=== PATIENT | female | born 1985 | race Caucasian/White ===

== ENCOUNTER 2020-03-21 04:55 | Observation (INO) ==
[2020-03-21] MEDS ORDERED: PROMETHAZINE 25 MG/51 ML BAG IV STA (05:42)
[2020-03-21] MEDS ORDERED: SODIUM CHLORIDE 0.9% 1000ML 1,000 ML IV ONE (05:42)
[2020-03-21] MEDS ORDERED: KETOROLAC 30 MG/ML VIAL IV ONE (05:42)
[2020-03-21] MEDS ORDERED: FAMOTIDINE 20MG IV PUSH 20 MG/5 ML SYR IV STA (05:43)
--- NOTE | 2020-03-21 05:46 | Emergency Department Note ---
Impression & Plan Intractable vomiting, Marijuana use ED Provider Note NAME: NIYA SEAY AGE: 34 SEX: F ARRIVES VIA: Ambulance INFORMANT: Patient ED PROVIDER(S): Carla Malik DO CHIEF COMPLAINT: Vomiting PLAN: Disposition: [facility]mitted by [facility] Condition: Fair MEDICAL DECISION MAKING: This is a 34-year-old female patient with a history of cyclic vomiting who presents to the department with vomiting. The patient was seen here yesterday with the same complaint and treated with a cocktail of IV medications and felt better upon discharge. Last evening, the patient was able to drink clear liq uids and eat some crackers and toast. Prior to going to bed, she took her dose of oral Phenergan. She woke up around 3:30 AM and felt extremely nauseated. She tried taking a sublingual Zofran for the nausea but it continued to worsen. She felt very weak and developed some increasing left upper quadrant abdominal pain. She called EMS. The patient was evaluated here in the emergency department and received IV fluids and IV antiemetics. This is the patient's third visit to the emergency department in the past 3 days. She has been unable to keep any solid foods down. The patient states that she is not been abusing marijuana for the past 4-5 days. She is concerned that she has not been able to get the GI work-up that she needs because of the coronavirus pandemic. The case was discussed with the [facility] and they will evaluate for further management. Triage Nursing notes reviewed and agree them. Prior medical records reviewed Vital Signs: reviewed and remarkable for slight hypertension Differential diagnosis: Dehydration, hypokalemia, cyclic vomiting syndrome, electrolyte abnormality, [facility] abuse, ER treatment provided: IV normal saline solution, IV Phenergan, IV Pepcid, IV Benadryl, IV Zofran Laboratory studies: See below HPI: 34/F arrives for evaluation of. This is a 34-year-old female patient with a history of cyclic vomiting who presents to the department with vomiting. The patient was seen here yesterday with the same complaint and treated with a cocktail of IV medications and felt better upon discharge. Last evening the patient was able to drink clear liquids and eat some crackers and toast. Prior to going to bed she took her dose of oral Phenergan. She woke up around 3:30 AM and felt extremely nauseated. She tried taking a sublingual Zofran for the n ausea but it continued to worsen. She felt very weak and developed some increasing left upper quadrant abdominal pain. She called EMS and they transported her here. The patient states that she last used marijuana approximately 5 days ago. She has been suffering from cyclic vomiting for the past 1 year. She was supposed to have GI evaluation and upper GI scope performed but it was canceled secondary to the onset of the coronavirus pandemic. ROS: See above HPI for pertinent positives & negatives. A total of 10 systems reviewed and were otherwise negative. PAST MEDICAL HISTORY:See Below PAST SURGICAL HISTORY:See Below FAMILY HISTORY:See Below SOCIAL HISTORY:See Below HOME MEDICATIONS:See list ALLERGIES:See list VITALS:See Below PHYSICAL EXAMINATION: HEENT: Head - normocephalic and atraumatic Pupils are equal, round, and reactive to light. Extraocular eye muscles are intact, and sclera are anicteric. Nose - moist nasal mucosa without discharge. Mouth - moist buccal mucosa. Oropharynx is nonerythematous and there is no tonsillar exudate or edema noted. Neck: Supple; no cervical lymphadenopathy or thyromegaly Heart: Regular rate and rhythm. There is a normal S1 and S2 with no murmurs, clicks, or gallops appreciated. Lungs: Clear to auscultation bilaterally with no wheezes, rales, or rhonchi. Abdomen: Soft, diffusely tender with even light palpation but most pacifically in the left upper quadrant of the abdomen. There are normal bowel sounds. There are no palpable pulsatile masses or hepatosplenomegaly. There is no guarding, rigidity, or rebound noted. Extremities: Contusion on the left proximal lower leg Skin: Pale, warm and dry with good turgor and no rashes. ED COURSE: Times/Reassessments: 0525: The patient was evaluated in room C6. A complete history and physical was performed. Previous electronic medical records were reviewed. An order was placed for continuous cardiac monitoring. The patient was in a normal sinus rhythm at a rate of 61. The patient was given a liter of normal saline solution. She was given IV Phenergan, IV Pepcid, and IV Toradol. This gave her no relief of her nausea and she continued to dry heave. Another order was placed for IV Benadryl and IV Zofran. I discussed the case with Dr. Gillespie who has agreed to evaluate the patient for further management. Carla Malik DO Past Med/Surg History Medical History Bipolar 1 disorder Chronic pain Cyclic vomiting syndrome (Acute) GERD (gastroesophageal reflux disease) Herniated intervertebral disc Marijuana use (Acute) Surgical History No pertinent past surgical history No significant past surgical history Social History Preferred Language: Dutch Communication Ability: Effective Visual Impairment: No Limitations Hearing Ability: Normal Beliefs That Will Affect Care: None marital status: Single Current Living Situation: Family Current Living Situation Comment: lives with her sons current occupational status: employed current occupation: [employer] Other Information That Helps Us Care for You: No Feels Safe at Home: Yes Safety Concerns: Feels Safe At This Time Smoking Status: Current every day smoker Tobacco Type: cigarettes ; Cigarettes Per Day: 10 ; Second Hand Exposure: Yes ; Tobacco Cessation Education Requested by Patient: No Hx Alcohol Use: No Hx Substance Use: Yes substance use type: marijuana Substance Use Type Other:: Suboxin Last Used Substance Other:: suboxin taken yesterday afternoon Allergies Allergies Allergy/AdvReac Type Severity Reaction Status Date / Time bee venom protein (honey bee) Allergy Mild Swelling Verified 03/21/20 05:39 shellfish derived Allergy Mild Unknown Verified 03/21/20 05:39 Sulfa (Sulfonamide Allergy Mild Unknown Verified 03/21/20 05:39 Antibiotics) Home Meds Home Medications Medication Instructions Recorded Confirmed buprenorphine-naloxone 2.5 tab SUBLINGUAL DAILY 01/19/19 03/21/20 medroxyprogesterone 150 mg IM UD 01/19/19 03/21/20 omeprazole 40 mg PO QAM 01/19/19 03/21/20 phentermine 18.75 mg PO Q OTHER DAY 01/19/19 03/21/20 trazodone 300 mg PO HS 01/19/19 03/21/20 valacyclovir 500 mg PO TID PRN 04/25/19 03/21/20 Previous Rx's Medication Instructions Recorded promethazine 25 mg PO TID PRN #10 tab 11/25/19 famotidine [Pepcid] 20 mg PO BID 56 Days #112 tab 03/20/20 ondansetron 4 mg PO Q6H PRN #20 tab 03/20/20 Results & Data (ED) Vital Signs Vital Signs - 24 hr 03/21/20 05:07 03/21/20 06:29 Pulse Rate 71 Pulse Rate [Right Finger] 87 Pulse Rhythm [Right Finger] Regular Pulse Strength [Right Finger] Normal Respiratory Rate 16 16 Respiratory Depth Normal Normal Blood Pressure 152/71 H Blood Pressure [Right Arm] 158/85 H Blood Pressure Mean 98 Blood Pressure Mean [Right Arm] 109 Blood Pressure Position Lying Blood Pressure Position [Right Arm] Lying Pulse Oximetry 97 97 Oxygen Delivery Method Room Air Room Air Sepsis Recent Fever Within 48 Hours No Sepsis New/Unexplained Change in Mental Status No Sepsis Action Taken by Nursing No Action Required Laboratory Data Result diagrams: 03/21/20 05:00 Lab Results 03/21/20 Range/Units 05:00 Sodium 143 (136-145) mmol/L Potassium 3.2 L (3.5-5.1) mmol/L Chloride 112 H (98-107) mmol/L Carbon Dioxide 25 (21-32) mmol/L Anion Gap 6.0 (3-11) BUN 11 (7-18) mg/dl Creatinine 0.81 (0.6-1.2) mg/dl Est Cr Clr Drug Dosing 116.5 ml/min Est GFR ( Amer) 109.1 Est GFR (Non-Af Amer) 94.1 BUN/Creatinine Ratio 13.7 (10-20) Glucose 109 H (70-99) mg/dl Calcium 9.0 (8.5-10.1) mg/dl Total Bilirubin 1.0 (0.2-1) mg/dl AST 9 L (15-37) U/L ALT 23 (12-78) U/L Alkaline Phosphatase 45 (45-117) U/L Total Protein 7.0 (6.4-8.2) gm/dl Albumin 4.2 (3.4-5.0) gm/dl Globulin 2.8 (2.5-4.0) gm/dl Albumin/Globulin Ratio 1.5 (0.9-2) Administered Medications Buprenorphine/Naloxone (Suboxone 8 Mg/2 Mg) 2.5 tab SL DAILY RANDALL; Protocol Stop: 04/20/20 08:59 Last Admin: 03/21/20 08:31 Dose: 1.5 tab Documented by: [id number] Dextrose/Sodium Chloride (D5w And Nss) 1,000 mls @ 125 mls/hr IV .Q8H RANDALL Stop: 04/20/20 07:28 Last Admin: 03/21/20 08:09 Dose: 125 mls/hr Documented by: [id number] Pantoprazole Sodium 40 mg/ (Syringe) 10 mls @ 5 mls/min IV BID RANDALL Stop: 04/20/20 08:59 Last Admin: 03/21/20 08:13 Dose: 5 mls/min Documented by: [id number] Potassium Chloride (K [place] / Wtr) 10 meq in 100 mls @ 100 mls/hr IV Q1H RANDALL Stop: 03/21/20 09:59 Last Admin: 03/21/20 08:11 Dose: 100 mls/hr Documented by: [id number] Discontinued Medications Diphenhydramine HCl (Benadryl) 25 mg IV NOW STA Stop: 03/21/20 06:36 Last Admin: 03/21/20 06:45 Dose: 25 mg Documented by: [id number] Sodium Chloride (Nss 1000ml) 1,000 mls @ 999 mls/hr IV .Q1H1M ONE Stop: 03/21/20 06:42 Last Infusion: 03/21/20 06:58 Dose: 0 mls/hr Documented by: [id number] Admin: 03/21/20 05:47 Dose: 999 mls/hr Documented by: [id number] Promethazine HCl (Phenergan) 25 mg in 51 mls @ 204 mls/hr IV NOW STA Stop: 03/21/20 05:56 Last Infusion: 03/21/20 06:15 Dose: 0 mls/hr Documented by: [id number] Admin: 03/21/20 05:47 Dose: 204 mls/hr Documented by: [id number] Famotidine (Pepcid 20mg Iv Push) 20 mg in 5 mls @ 2.5 mls/min IV NOW STA Stop: 03/21/20 05:44 Last Admin: 03/21/20 05:49 Dose: 2.5 mls/min Documented by: [id number] Ketorolac Tromethamine (Toradol) 30 mg IV NOW ONE Stop: 03/21/20 05:43 Last Admin: 03/21/20 05:47 Dose: 30 mg Documented by: [id number] Ondansetron HCl (Zofran) 4 mg IV NOW STA Stop: 03/21/20 06:36 Last Admin: 03/21/20 06:45 Dose: 4 mg Documented by: [id number] Discharge Plan Visit Data *Final* Discharge Date/Time: 03/21/20 07:15 Chief Complaint: Vomiting Stated Complaint: VOMITING ED Provider: Carla Malik Discharge Problem: Intractable vomiting, Marijuana use Patient Disposition: Admitted As Inpatient Discharge Instructions Interventions: ED Discharge Assessment Last Done: 03/21/20 07:15 Discharge Problem: Intractable vomiting Qualifiers: Vomiting type: unspecified Nausea presence: with nausea Qualified Code(s): R11.2 - Nausea with vomiting, unspecified
[2020-03-21 06:31] LABS: Albumin Level 4.2 gm/dl (3.4-5.0); BUN Creatinine Ratio 13.7 (10-20); Creatinine Clr Calc Pharmacy 116.5 ml/min; Est GFR (African American) 109.1; Est GFR (Non-African American) 94.1; Potassium 3.2 mmol/L (3.5-5.1)
[2020-03-21 06:34] LABS: Albumin Globulin Ratio 1.5 (0.9-2); Globulin 2.8 gm/dl (2.5-4.0)
[2020-03-21] MEDS ORDERED: ONDANSETRON INJ 2 MG/ML 2 ML VIAL IV STA (06:35)
[2020-03-21] MEDS ORDERED: DiphenhydrAMINE HCL 50 MG/ML VIAL IV STA (06:35)
[2020-03-21] MEDS ORDERED: MoRPHine SULFATE 2 MG/ML CARP IV PRN (07:07)
[2020-03-21] MEDS ORDERED: ONDANSETRON INJ 2 MG/ML 2 ML VIAL IV PRN (07:29)
[2020-03-21] MEDS ORDERED: ACETAMINOPHEN 325 MG TAB PO PRN (07:29)
[2020-03-21] MEDS: D5W AND NSS 1,000 ML IV SCH ×2 (08:09→18:35)
[2020-03-21] MEDS: POTASSIUM CHLORIDE / WTR 10 MEQ/100 ML PLCT IV SCH ×2 (08:11→09:13)
[2020-03-21] MEDS ORDERED: PANTOprazole 40 MG in SYRINGE 0 ML IV SCH (09:00)
[2020-03-21] MEDS ORDERED: BUPRENORPHINE/NALOXONE 8/2 MG TAB SL SCH ×2 (09:00→18:00)
--- NOTE | 2020-03-21 09:19 | History and Physical Report ---
DATE OF ADMISSION: 03/21/2020 CHIEF COMPLAINT: Nausea, vomiting and abdominal pain. HISTORY OF PRESENT ILLNESS: This is a 34-year-old female with past medical history significant for GERD, morbid obesity, history of herpes simplex vulvovaginitis, history of narcotic addiction, tobacco disorder, bipolar affective disorder, who lives with her son, presents with persistent nausea and vomiting. This is her third visit in the last 3 days to the ER. The patient was in the ER yesterday; chest and abdominal x-ray was okay; labs were unremarkable. She improved with nausea medication and discharged home Again in the morning, she woke up at around 3:30 a.m. with persistent nausea and vomiting, she vomited several episodes of just liquid stuff, no blood in the vomitus and also abdominal pain mostly in the epigastric region. No diarrhea or constipation, no blood in the stools or black stools. Normal bladder movements. Currently, requesting for nausea medications .Hemodynamically stable. Denies any fever or chills. No chest pain, no shortness of breath, no cough, no sick contacts, no headache, no blurred vision, no earache, no runny nose, no sore throat. Appetite is not great because of her symptoms. She also smokes marijuana. She says the last time she smoked marijuana was 2 days ago. Supposed to visit GI, but because of the ongoing COVID pandemic, she was not able to see them. ALLERGIES: BEE VENOM, SHELLFISH, SULFA ANTIBIOTICS. PAST MEDICAL HISTORY: As mentioned above. PAST SURGICAL HISTORY: Dental surgery, tonsillectomy. MEDICATIONS: The patient is on trazodone 300 mg p.o. at bedtime, omeprazole 40 mg p.o. daily, Zofran 4 mg p.o. t.i.d. p.r.n., valacyclovir 500 mg t.i.d. p.r.n. for recurrent episode, Depo-Provera injection every 3 months, Suboxone 8/2 mg 2 tablets daily, phentermine 37.5 mg p.o. every other day, Tylenol 1000 mg p.o. t.i.d. p.r.n. FAMILY HISTORY: Significant for mother has history of alcoholism, arthritis, depression, anxiety, thyroid disorder. SOCIAL HISTORY: Lives with her son. Smokes 1 pack a day for the last 40 years. No alcohol use. Smokes marijuana. REVIEW OF SYMPTOMS: As per HPI. Rest of review of symptoms negative. PHYSICAL EXAMINATION: GENERAL: The patient is obese, not in acute distress. VITAL SIGNS: She is afebrile, pulse 87, respiratory rate 16, blood pressure 158/85, oxygen 97% on room air. HEENT: Pupils equal, round, and reactive to light. NECK: No neck masses. Supple. CARDIOVASCULAR: S1, S2 heard, regular rate and rhythm, no murmur, no gallop. RESPIRATORY SYSTEM: Normal AP diameter. No accessory muscle use. No wheezing, no crackles. ABDOMEN: Soft, bowel sounds somewhat sluggish, tenderness on palpation mostly in the epigastric region. No guarding, no rigidity. No distention. CENTRAL NERVOUS SYSTEM: Cranial nerves II-XII grossly intact, nonfocal. EXTREMITIES: No edema, no erythema. LABORATORY DATA: Sodium 143, potassium 3.2, chloride 112, bicarbonate 25, BUN 11, creatinine 0.8, serum glucose 109, calcium 9, total bilirubin 1, AST 9, ALT 23, alkaline phosphatase 45. ASSESSMENT AND PLAN: This is a 34-year-old female who presents with persistent nausea, vomiting, abdominal pain. 1. Persistent nausea, vomiting, abdominal pain .Cyclic vomiting. The patient was seen in the Emergency Room 3 times in last 3 days. In the ER, imaging studies done with chest x-ray and abdomen x-ray, which were unremarkable yesterday. Laboratories are unremarkable except for hypokalemia. The patient smokes marijuana, possibly marijuana induced. The patient is supposed to visit Gastrointestinal, but not able to because of the coronavirus pandemic. We will keep her n.p.o., IV fluids, IV antiemetics, IV pain medications p.r.n. and consult Gastrointestinal for further recommendations. Observe in the medical floor. 2. Gastroesophageal reflux disease. We will continue famotidine, place her on IV Protonix. 3. Obesity. We will hold phentermine for now. 4. Tobacco disorder, needs counseling. 5. History of narcotic addiction, on Suboxone. 6. Deep venous thrombosis prophylaxis, sequential compression devices. DISPOSITION: Close monitor and observe in the medical floor. Level 1 full code. MTDD
--- NOTE | 2020-03-21 09:42 | Gastrointestinal Consultation ---
Date of Consultation March 21, 2020 Assessment & Plan (1) Nausea & vomiting: Pt is a 34 y/o female w chronic n/v, epigastric pain symptoms. Previous imaging studies were unremarkable for acute gallbladder, liver, pancreas dz or bowel obstruction. She reports hx of heroin use, sober x 6 yrs, + marijuana and tobacco uses till 1 week ago, on Suboxone. DDx: gastritis, cannabis hyperemesis syndrome, gastroparesis (med related). - CL diet, advance as tolerated - PPI PO daily - Symptomatic management w antiemetics. 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 Requesting Physician: Dr. Nabil Thompson Attending Physician: Dr. Vernon Strauss History of Present Illness Pt is a 34 y/o female who presented w n/v symptoms x 1 month but worse in last week. Denies any coffee ground emesis or hematemesis. She reports associated epigastric pain as well. Denies fever, chills, CP, SOB, changes in bowel habits though no BM for several days as she's unable to tolerate solid foods. Able to tolerate norah bernie, other thin liquids. She had prior abd imaging studies including gallbladder u/s, CT and at this admission KUB - all w/o signs of significant gallbladder, liver pancreas dz, or signs of bowel obstruction. She does have moderate stool in colon seen on KUB yesterday. She has hx of heroin use up till 6 yrs ago, tobacco & marijuana uses up till 1 week ago. She is currently on Suboxone. Denies NSAIDs. She reports only thing that helped w n/v symptoms are being in hot shower. Denies any hx of endoscopic evals. Allergies Allergy/AdvReac Type Severity Reaction Status Date / Time bee venom protein (honey bee) Allergy Mild Swelling Verified 03/21/20 05:39 shellfish derived Allergy Mild Unknown Verified 03/21/20 05:39 Sulfa (Sulfonamide Allergy Mild Unknown Verified 03/21/20 05:39 Antibiotics) Home Medications Home Medications Medication Instructions Recorded Confirmed Type buprenorphine-naloxone 2.5 tab SUBLINGUAL DAILY 01/19/19 03/21/20 History medroxyprogesterone 150 mg IM UD 01/19/19 03/21/20 History omeprazole 40 mg PO QAM 01/19/19 03/21/20 History phentermine 18.75 mg PO Q OTHER DAY 01/19/19 03/21/20 History trazodone 300 mg PO HS 01/19/19 03/21/20 History valacyclovir 500 mg PO TID PRN 04/25/19 03/21/20 History promethazine 25 mg PO TID PRN #10 tab 11/25/19 03/21/20 Rx famotidine [Pepcid] 20 mg PO BID 56 Days #112 tab 03/20/20 03/21/20 Rx ondansetron 4 mg PO Q6H PRN #20 tab 03/20/20 03/21/20 Rx Patient History Medical History Bipolar 1 disorder Chronic pain Cyclic vomiting syndrome (Acute) GERD (gastroesophageal reflux disease) Herniated intervertebral disc Marijuana use (Acute) Surgical History No pertinent past surgical history No significant past surgical history Family History Mother Liver failure Father Alcoholic Other Diabetes Hypertension Lung disease Social History Preferred Language: Slovak Communication Ability: Effective Visual Impairment: No Limitations Hearing Ability: Normal Beliefs That Will Affect Care: None marital status: Single Current Living Situation: Family Current Living Situation Comment: lives with her sons current occupational status: employed current occupation: [employer] Other Information That Helps Us Care for You: No Feels Safe at Home: Yes Safety Concerns: Feels Safe At This Time Smoking Status: Current every day smoker Tobacco Type: cigarettes ; Cigarettes Per Day: 10 ; Second Hand Exposure: Yes ; Tobacco Cessation Education Requested by Patient: No Hx Alcohol Use: No Hx Substance Use: Yes substance use type: marijuana Substance Use Type Other:: Suboxin Last Used Substance Other:: suboxin taken yesterday afternoon Review of Systems Review of Systems: All systems reviewed & are unremarkable except as noted in HPI & below Constitutional: as per Subjective / HPI Respiratory: no cough and no dyspnea Cardiovascular: no chest pain, no lightheadedness and no edema Gastrointestinal: as per Subjective / HPI Physical Exam Constitutional: WD/WN, vitals as above well groomed, cooperative and comfortable Eyes: PERRL, conjunctivae normal, anicteric sclerae ENMT: external ear and nose normal, oropharynx normal Respiratory: normal respiratory effort, lungs clear to auscultation Cardiovascular: RRR, no murmur, no edema Gastrointestinal (Abdomen): Inspection/Auscultation: + hypoactive bowel sounds Percussion/Palpation: + abdomen tender (epigastric ) and abdomen soft Skin: rash on upper chest which she reports was from being in hot shower Neurologic: Motor/Sensory: no asterixis Psychiatric: A+Ox3, euthymic affect Lymphatic: no lymphedema Results & Data ([facility]) Vital Signs (Past 12 Hours) Vital Signs Temp Pulse Pulse Resp BP BP Pulse Ox 03/21/20 08:03 142/77 H 03/21/20 07:30 36.7 C 61 18 173/111 H 99 03/21/20 06:29 87 16 158/85 H 97 03/21/20 05:07 71 16 152/71 H 97
[2020-03-21] MEDS: POTASSIUM CHLORIDE 20 MEQ TABCR PO STA ×2 (09:55→10:34)
--- NOTE | 2020-03-21 14:43 | Communication Note ---
Date of Service: March 21, 2020 She is 34-year-old obese female with significant past medical history of narcotic addiction on Suboxone, tobacco use disorder, bipolar disorder with ongoing marijuana use was admitted early this morning with nausea and vomiting for the last 3 days. Nobody else in the family has been affected and she denies any fever and/or chills with it. She remains hemodynamically stable with some electrolyte disturbance. She has been feeling a lot better since admission and has been tolerating clears as ordered by GI service. She got supplemental electrolyte in replacement and will check her PRP before sending her home this evening. The diet was advanced as per her request and if she feels better she is to go home this evening. Dr Alexander Thompson
[2020-03-21 15:30] VITALS: BP 126/67; PULSE 68; TEMP 98.8; O2SAT 100
[2020-03-21 16:25] LABS: BUN Creatinine Ratio 16.6 (10-20); Creatinine Clr Calc Pharmacy 129.2 ml/min; Est GFR (African American) 123.7; Est GFR (Non-African American) 106.7; Potassium 3.9 mmol/L (3.5-5.1)
--- NOTE | 2020-03-21 17:17 | Discharge Summary ---
Date of Service March 21, 2020 Admission HPI Per Admitting Provider DICTATED BY: Hawk Gillespie MD DATE OF ADMISSION: 03/21/2020 CHIEF COMPLAINT: Nausea, vomiting and abdominal pain. HISTORY OF PRESENT ILLNESS: This is a 34-year-old female with past medical history significant for GERD, morbid obesity, history of herpes simplex vulvovaginitis, history of narcotic addiction, tobacco disorder, bipolar affective disorder, who lives with her son, presents with persistent nausea and vomiting. This is her third visit in the last 3 days to the ER. The patient was in the ER yesterday; chest and abdominal x-ray was okay; labs were unremarkable. She improved with nausea medication and discharged home checked went home. In the morning, she woke up at around 3:30 a.m. with persistent nausea and vomiting, she vomited several episodes of just liquid stuff, no blood in the vomitus and also abdominal pain mostly in the epigastric region. No diarrhea or constipation, no blood in the stools or black stools. Normal bladder movements. Currently, requesting for nausea medications and hemodynamically stable. Denies any fever or chills. No chest pain, no shortness of breath, no cough, no sick contacts, no headache, no blurred vision, no earache, no runny nose, no sore throat. Appetite is not great because of her symptoms. She also smokes marijuana. She says the last time she smoked marijuana was 2 days ago. Supposed to visit GI, but because of the ongoing COVID pandemic, she was not able to see them. Admission Exam Per Admitting Provider GENERAL: The patient is obese, not in acute distress. VITAL SIGNS: She is afebrile, pulse 87, respiratory rate 16, blood pressure 158/85, oxygen 97% on room air. HEENT: Pupils equal, round, and reactive to light. NECK: No neck masses. Supple. CARDIOVASCULAR: S1, S2 heard, regular rate and rhythm, no murmur, no gallop. RESPIRATORY SYSTEM: Normal AP diameter. No accessory muscle use. No wheezing, no crackles. ABDOMEN: Soft, bowel sounds somewhat sluggish, tenderness on palpation mostly in the epigastric region. No guarding, no rigidity. No distention. CENTRAL NERVOUS SYSTEM: Cranial nerves II-XII grossly intact, nonfocal. EXTREMITIES: No edema, no erythema Principal Diagnosis Intractable nausea and vomiting likely secondary to use of marijuana-resolved, GERD Discharge Exam Ambulating in the hallway without any symptoms Constitutional well developed and well nourished; no acute distress Eyes PERRL, conjunctivae normal, anicteric sclerae ENMT external ear and nose normal, oropharynx normal Respiratory no respiratory distress Auscultation: lungs clear to auscultation bilaterally Cardiovascular RRR, no murmur, no edema Gastrointestinal (Abdomen) Inspection/Auscultation: normal bowel sounds; abdomen not distended Percussion/Palpation: abdomen soft; abdomen nontender (epigastric ) Neurologic Motor/Sensory: no asterixis Psychiatric A+Ox3, euthymic affect Lymphatic no lymphedema Discharge Data Allergies Allergy/AdvReac Type Severity Reaction Status Date / Time bee venom protein (honey bee) Allergy Mild Swelling Verified 03/21/20 05:39 shellfish derived Allergy Mild Unknown Verified 03/21/20 05:39 Sulfa (Sulfonamide Allergy Mild Unknown Verified 03/21/20 05:39 Antibiotics) Consultations 03/21/20 06:34 ED Decision to Admit Stat 03/21/20 08:00 Consult Gastroenterology Routine Hospital Course (1) Nausea & vomiting: Pt is a 34 y/o female w chronic n/v, epigastric pain symptoms. Previous imaging studies were unremarkable for acute gallbladder, liver, pancreas dz or bowel obstruction. She reports hx of heroin use, sober x 6 yrs, + marijuana and tobacco uses till 1 week ago, on Suboxone. DDx: gastritis, cannabis hyperemesis syndrome, gastroparesis (med related). Intractable nausea with vomiting for the last 3 days Likely secondary to use of marijuana History of cyclical vomiting Has been feeling better since admission Started with clears and tolerated and advance diet Ambulating well in the hallway Will be discharged home this afternoon Repeat electrolytes came back unremarkable GERD No acute issue Continue PPI Tobacco use disorder Advised to quit smoking History of marijuana use and other narcotic addiction on Suboxone Strongly advised to quit marijuana Total Time Total Time Spent Total Time Spent (In Minutes): 35 minutes Total Time Includes: Examination of the Patient, Discharge Planning, Medication Reconciliation and Communication With Other Providers Discharge Plan Discharge Items Patient Disposition: Home - Self-Care Reason For Visit: NAUSEA, VOMITING Discharge Diagnosis: Intractable nausea and vomiting likely secondary to use of marijuana-resolved, GERD Condition on Discharge: Good Activity: Resume your previous activity Non-emergency contact: Primary Care Provider Call non-emergency contact if: you have any medication questions and your symptoms worsen Follow-up/Referrals: Bree Garland DO [Primary Care Provider] - 03/25/20 11:20 am (Your appo intment is with Dr. Graham) Diet: Regular Addtl Attending Provider Instructions: Strongly advised to quit use of marijuana Pending Studies at Discharge: No Stand-Alone Forms: My [facility], Smoking Cessation Medications and DC Order Prescriptions: Continued phentermine 37.5 mg tablet 18.75 mg PO Q OTHER DAY RF: 0 omeprazole 40 mg capsule,delayed release(DR/EC) 40 mg PO QAM RF: 0 trazodone 300 mg tablet 300 mg PO HS RF: 0 medroxyprogesterone 150 mg/mL syringe 150 mg IM UD RF: 0 buprenorphine-naloxone 8-2 mg tablet, sublingual 2.5 tab Sublingual DAILY RF: 0 valacyclovir 500 mg tablet 500 mg PO TID PRN (Reason: outbreaks) RF: 0 promethazine 25 mg tablet 25 mg PO TID PRN (Reason: nausea and vomiting) Qty: 10 RF: 0 ondansetron 4 mg tablet,disintegrating 4 mg PO Q6H PRN (Reason: nausea and vomiting) Qty: 20 RF: 0 famotidine [Pepcid] 20 mg tablet 20 mg PO BID 56 Days Qty: 112 RF: 0 Discharge Orders: Discharge Order (Routine); Ordered 03/21/20 Ordered By: Nabil Thompson Admission Data Admit Date/Time: 03/21/20 06:57 Attending Provider: Nabil Thompson Admit Provider: Hawk Gillespie Primary Care Provider: Bree Garland Other Providers: Hawk Gillespie ; Smita Duran ; Annie Cr ; Amandeep Royal ; Tran Kellogg ; Vernon Strauss ; Ni Aranda ; Wilfredo Aguilera ; Abril Cochran ; Seven Rogers ; Bharat Eddy ; Mabel Bentley ; Valencia Wiley ; Tricia Thakkar ; Vee Watson ; Bayron Galvez
[2020-03-21] MEDS ORDERED: PANTOprazole 40 MG TAB PO SCH (21:00)
[2020-03-21] MEDS ORDERED: TRAZODONE HCL 100 MG TAB PO SCH (21:00)
[2020-03-21] MEDS ORDERED: FAMOTIDINE 20 MG TAB PO SCH (21:00)
[2020-03-22] MEDS ORDERED: BUPRENORPHINE/NALOXONE 8/2 MG TAB SL SCH (09:00)
== END 2020-03-21 18:50 | disposition home or self-care (01) ==
LOC: 3E 04:55 → ED 04:55 → 3E 07:15